=== PATIENT | male | born 1980 | race Caucasian/White ===

== ENCOUNTER 2022-01-02 18:46 | Emergency (ER) | payer SELFPAY ==
[2022-01-02 19:21] LABS: BASOPHILS % (AUTO) 0.5 %; EOSINOPHILS # (AUTO) 0.1 10^3/uL (0.0-0.7); EOSINOPHILS % (AUTO) 1.6 %; HCT - HEMATOCRIT 43.8 % (42.0-52.0); HGB - HEMOGLOBIN 14.9 g/dL (14.0-18.0); LYMPHOCYTES # (AUTO) 1.5 10^3/uL (1.5-3.5); MEAN CORPUSCULAR HEMOGLOBIN 31.1 pg (27.0-31.0); MEAN CORPUSCULAR VOLUME 91.4 fL (80.0-94.0); MEAN PLATELET VOLUME 9.4 fL (7.4-11.4); MONOCYTES # (AUTO) 0.6 10^3/uL (0.0-1.0); NEUTROPHILS # (AUTO) 6.1 10^3/uL (1.5-6.6); NEUTROPHILS % (AUTO) 72.8 %; PLT - PLATELET COUNT 279 10^3/uL (130-450); RED BLOOD COUNT 4.79 10^6/uL (4.70-6.10); RED CELL DISTRIBUTION WIDTH 12.9 % (12.0-15.0); WHITE BLOOD COUNT 8.3 x10^3/uL (4.8-10.8)
[2022-01-02 19:31] LABS: ALBUMIN 4.1 g/dL (3.2-5.5); ALBUMIN/GLOBULIN RATIO 1.2 (1.0-2.2); BILIRUBIN,TOTAL 0.6 mg/dL (0.2-1.0); CALCIUM 8.8 mg/dL (8.5-10.3); CREATININE 0.8 mg/dL (0.6-1.2); POTASSIUM 3.8 mmol/L (3.5-5.0); TOTAL PROTEIN 7.4 g/dL (6.7-8.2)
--- NOTE | 2022-01-02 19:56 | ED Physician Documentation ---
PD HPI ABD PAIN - Stated complaint Stated Complaint: ABD PX - Chief complaint Chief Complaint: Abd Pain - History obtained from History obtained from: Patient - History of Present Illness Timing - onset: Today PD PAST MEDICAL HISTORY - Allergies Allergies/Adverse Reactions: Allergies Allergy/AdvReac Type Severity Reaction Status Date / Time No Known Drug Allergies Allergy Verified 01/02/22 18:55 Results - Vitals Vitals: Vital Signs - 24 hr 01/02/22 18:51 Temperature 36.1 C L Heart Rate 90 Respiratory 18 Rate Blood Pressure 142/94 H O2 Saturation 98 - Labs Labs: Laboratory Tests 01/02/22 01/02/22 19:15 19:17 WBC 8.3 RBC 4.79 Hgb 14.9 Hct 43.8 MCV 91.4 MCH 31.1 H MCHC 34.0 RDW 12.9 Plt Count 279 MPV 9.4 Neut # (Auto) 6.1 Lymph # (Auto) 1.5 [place] # (Auto) 0.6 Eos # (Auto) 0.1 Baso # (Auto) 0.0 Absolute Nucleated RBC 0.00 Nucleated RBC % 0.0 Sodium 132 L Potassium 3.8 Chloride 98 L Carbon Dioxide 24 Anion Gap 10.0 BUN 11 Creatinine 0.8 Estimated GFR (MDRD) 106 Glucose 177 H Calcium 8.8 Total Bilirubin 0.6 AST 23 ALT 30 Alkaline Phosphatase 49 Total Protein 7.4 Albumin 4.1 Globulin 3.3 Albumin/Globulin Ratio 1.2 Lipase 30
--- NOTE | 2022-01-02 20:51 | ED Physician Documentation ---
History of Present Illness - Stated complaint Stated Complaint: ABD PX - Chief complaint Chief Complaint: Abd Pain - History obtained from History obtained from: Patient - Additonal information Additional information: The patient comes to the emergency department chief complaint of pain in umbilical area that is been going on for a few days but especially bad tonight. The patient states he has a longstanding history of umbilical hernia, and that normally, he can get it to go back in, but he states it has just been too painful to try to Reduce the herniated contents. He states he tried stretching his arms up this evening, Which is what he usually does to try to relax his abdomen and reduce the hernia. However, he states it made it hurt more and it did not seem like it helped at all. He states he has been having bowel movements and passing gas without difficulty. No nausea or vomiting. No other complaints at this time. Review of Systems Ten Systems: 10 systems reviewed and negative Constitutional: reports: Reviewed and negative Eyes: reports: Reviewed and negative Ears: reports: Reviewed and negative Nose: reports: Reviewed and negative Throat: reports: Reviewed and negative Cardiac: reports: Reviewed and negative Respiratory: reports: Reviewed and negative GI: reports: Abdominal Pain : reports: Reviewed and negative Skin: reports: Reviewed and negative Musculoskeletal: reports: Reviewed and negative Neurologic: reports: Reviewed and negative Psychiatric: reports: Reviewed and negative Endocrine: reports: Reviewed and negative Immunocompromised: reports: Reviewed and negative PD PAST MEDICAL HISTORY - Allergies Allergies/Adverse Reactions: Allergies Allergy/AdvReac Type Severity Reaction Status Date / Time No Known Drug Allergies Allergy Verified 01/02/22 18:55 PD ED PE NORMAL - Vitals Vital signs reviewed: Yes - General General: Alert and oriented X 3, No acute distress, Well developed/nourished - HEENT HEENT: Atraumatic, PERRL, EOMI, Moist mucous membranes - Neck Neck: Supple, no meningeal sign - Cardiac Cardiac: RRR, No murmur - Respiratory Respiratory: Clear bilaterally - Abdomen Abdomen: Soft, Non distended, Other (Obese abdomen. Fullness noted over superior aspect of umbilicus, but underlying tissue is soft. Mild distention of superior edge of herniated contents is palpable, and soft. Difficult to discern any reduction, secondary to obesity and softness of herniated contents) - Derm Derm: Normal color, Warm and dry, No rash - Extremities Extremities: No deformity, No edema, No calf tenderness / cord - Neuro Neuro: Alert and oriented X 3 - Psych Psych: Normal mood, Normal affect Results - Vitals Vitals: Vital Signs - 24 hr 01/02/22 01/02/22 01/02/22 18:51 20:30 21:00 Temperature 36.1 C L Heart Rate 90 80 78 Respiratory 18 Rate Blood Pressure 142/94 H 127/88 H 122/83 H O2 Saturation 98 100 100 01/02/22 01/02/22 01/03/22 23:15 23:55 00:40 Temperature 37.2 C Heart Rate 86 89 71 Respiratory 16 22 18 Rate Blood Pressure 126/88 H 183/95 H 128/71 O2 Saturation 100 94 96 Oxygen O2 Source Room air - Labs Labs: Laboratory Tests 01/02/22 01/02/22 19:15 19:17 WBC 8.3 RBC 4.79 Hgb 14.9 Hct 43.8 MCV 91.4 MCH 31.1 H MCHC 34.0 RDW 12.9 Plt Count 279 MPV 9.4 Neut # (Auto) 6.1 Lymph # (Auto) 1.5 [place] # (Auto) 0.6 Eos # (Auto) 0.1 Baso # (Auto) 0.0 Absolute Nucleated RBC 0.00 Nucleated RBC % 0.0 Sodium 132 L Potassium 3.8 Chloride 98 L Carbon Dioxide 24 Anion Gap 10.0 BUN 11 Creatinine 0.8 Estimated GFR (MDRD) 106 Glucose 177 H Calcium 8.8 Total Bilirubin 0.6 AST 23 ALT 30 Alkaline Phosphatase 49 Total Protein 7.4 Albumin 4.1 Globulin 3.3 Albumin/Globulin Ratio 1.2 Lipase 30 - Rads (name of study) CT abdomen pelvis Radiology: Final report received, EMP read indepedently, See rad report (Umbilical hernia containing fat and small intestine. Small area of small bowel wall thickening, consistent with small bowel obstruction upstream from the hernia.) PD MEDICAL DECISION MAKING - ED course Complexity details: reviewed results, re-evaluated patient, considered differential, d/w patient ED course: The patient's exam was somewhat difficult because he had moderate Pawel obese abdomen and the herniated contents were indistinct. The hernia area felt very soft, but patient also had a lot of tenderness with any attempt to reduce the hernia, so I could not get a clear picture whether the hernia was actually reducing or not. Because of this, I felt the patient should have a CT scan of the abdomen and pelvis. His laboratory studies were unremarkable. He was sent for CT, And CT showed a fat and small intestine containing hernia just superior to the umbilicus. Bowel was not necrotic. There appeared to be some small matthew l obstruction just upstream from the hernia. I discussed the findings with the patient, and he agreed to have a little bit of analgesia and We will see if we can get the hernia to reduce after that. The patient was given Dilaudid and about 20 minutes later I went in to check on him. He was completely pain-free. Additionally, he had been sleeping in the bed with his arms up behind his head, and his hernia had reduced spontaneously. I did probe deeply and found the hernia opening. There is no longer any soft tissue herniating through from abdominal cavity, and I felt the patient was stable for discharge. We have discussed the usual indications for return. Departure - Departure Disposition: 01 Home, Self Care Clinical Impression: Incarcerated hernia, Small bowel obstruction Umbilical hernia Qualifiers: Obstruction and gangrene presence: without obstruction or gangrene Qualified Code(s): K42.9 - Umbilical hernia without obstruction or gangrene Condition: Stable Instructions: Hernia How Develops Follow-Up: Clinton Melo MD [Provider Admit Priv/Credential] - Comments: Your labs look good tonight. Your CT scan showed a hernia with some intestine sticking out through it, right above your bellybutton. It also showed the beginning of a small bowel obstruction, most likely because the intestine that w as stuck in the hernia was not letting any of the intestinal contents get through. However, with some pain medication and stretching out, your hernia has actually reduced by itself. As such, and this should allow the intestinal obstruction clear, now that the intestine is out of the hernia, and everything should be able to move forward. If you develop severe pain again or any nausea or vomiting in association with it, you should seek medical reevaluation. Otherwise, please avoid heavy lifting and be sure to get a high-fiber diet. If you wish to have your hernia repaired, you may follow-up with the surgeons to discuss this. Discharge Date/Time: 01/03/22 00:41
[2022-01-02] MEDS ORDERED: IOVERSOL 320 100 ML VIAL IVP ONE ×2 (21:07→21:39)
--- NOTE | 2022-01-02 22:45 | CT Report ---
PROCEDURE: Abdomen/Pelvis W INDICATIONS: lizet-umbilical pain, hernia CONTRAST: IV CONTRAST: Optiray 320. TECHNIQUE: After the administration of intravenous contrast, 5 mm thick sections acquired from the diaphragms to the symphysis. 5 mm thick coronal and sagittal reformats were acquired. For radiation dose reducti on, the following was used: automated exposure control, adjustment of mA and/or kV according to dudley ent size. COMPARISON: None. FINDINGS: Image quality: Excellent. ABDOMEN: Lung bases: Bibasilar atelectasis. There is a 3 mm nodule in the right middle lobe (series 4 image 1) . Heart size is normal. Small hiatal hernia. Solid organs: Liver is normal in size. There is a 2.3 cm subcapsular mass in the right hepatic lobe. In addition, there is a vague 1 cm low dense nodule in the right hepatic lobe (series 3 image 25). Spleen is normal in size and enhancement. Gallbladder is normal. Biliary system is non dilated. Barry creas enhances normally. No adrenal nodules. Kidneys demonstrate normal size and enhancement, witho ut hydronephrosis. Peritoneum and bowel: Proximal small intestine is mildly distended measuring up to 3 cm in diameter. Distal small bowel loops are decompressed. The transitional point is at the periumbilical ventral her keesha. The CT findings are consistent with small bowel obstruction. There is appearance of mild diffuse colonic wall, most likely due to lack of distention. No free flui d or air. Nodes and vessels: No retroperitoneal or mesenteric adenopathy by size criteria. Aorta and inferior vena cava are normal in size. Miscellaneous: There is a moderate-sized periumbilical toe hernia containing a loop of small intestin e. The hernia neck measures 2.7 cm transverse and 1.9 cm cephalocaudal. PELVIS: Genitourinary: Bladder wall thickness is normal. Miscellaneous: No inguinal hernias or adenopathy. Bones: No suspicious bony lesions. No vertebral body compression fractures. There is grade 1 anter olisthesis of L4 on L5 secondary to bilateral L4 pars defects. IMPRESSION: 1. There is a moderate-sized periumbilical ventral hernia containing a short segment of small intesti ne. There is small bowel obstruction caused by the hernia. 2. Appearance of mild colonic wall thickening most likely due to lack of distention. Mild colitis is felt less likely. 3. There are 2 indeterminate hepatic masses. A nonemergent ultrasound is recommended as initial follo w-up evaluation. 4. A 3 mm nodule in the right middle lobe. Recommend nonemergent follow-up chest CT in 3 months. 5. Bilateral pars defects at L4. There is grade 1 anterolisthesis of L4 on L5. Reviewed by: Howard Kendall MD on 01/02/2022 10:43 PM PST Approved by: Howard Kendall MD on 01/02/2022 10:43 PM PST Station ID: [id number]
[2022-01-02] MEDS ORDERED: HYDROmorphone 1 MG/ML CARPUJECT IVP STA (23:09)
[2022-01-03 00:41] VITALS: BP 128/71
== END 2022-01-03 00:41 | disposition home or self-care (01) ==
LOC: ED 18:46
DX: K42.9 Umbilical hernia without obstruction or gangrene (principal)
CPT/HCPCS: 36415; 74177; 80053; 83690; 85025; 96372; 99282; 99284; J1170; Q9967; 81001; 81003; 87086

== ENCOUNTER 2023-02-13 17:42 | Emergency (ER) | payer OTHER ==
[2023-02-13] MEDS ORDERED: MORPHINE 2 MG/ML CARPUJECT IVP STA ×2 (19:11→19:48)
[2023-02-13] MEDS ORDERED: ONDANSETRON 4 MG/2 ML VIAL IVP STA (19:11)
[2023-02-13] MEDS ORDERED: SODIUM CHLORIDE 0.9% 1,000 ML IV STA (19:27)
--- NOTE | 2023-02-13 19:43 | ED Physician Documentation ---
PD HPI ABD PAIN - Stated complaint Stated Complaint: ABD PX/BULGE - Chief complaint Chief Complaint: Abd Pain - History obtained from History obtained from: Patient - Additional information Additional information: Patient is a 42-year-old male with a known umbilical hernia presenting for evaluation of worsening pain to the hernia site for the past 2 days. He denies nausea or vomiting, fevers. His last bowel movement was this morning. He denies diarrhea. He states that his stools may have been more hard recently. He denies doing any New activities yesterday that could have worsened his pain. 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 Review of Systems Constitutional: denies: Fever Cardiac: denies: Chest pain / pressure Respiratory: denies: Dyspnea GI: reports: Abdominal Pain. denies: Nausea, Vomiting, Diarrhea, Bloody / black stool : denies: Dysuria Musculoskeletal: denies: Back pain Neurologic: denies: Headache PD PAST MEDICAL HISTORY - Past Medical History Past Medical History: Yes GI: Other Other Past Medical History: umbilical hernia - Past Surgical History Past Surgical History: No - Present Medications Home Medications: Ambulatory Orders Medication Instructions Recorded Confirmed No Known Home Medications 02/13/23 02/13/23 - Allergies Allergies/Adverse Reactions: Allergies Allergy/AdvReac Type Severity Reaction Status Date / Time No Known Drug Allergies Allergy Verified 02/13/23 17:50 - Social History Does the pt smoke?: Yes Smoking Status: Current every day smoker Does the pt drink ETOH?: Yes Does the pt have substance abuse?: Yes Substance Use and Type: Marijuana, Meth - POLST Patient has POLST: No PD ED PE NORMAL - General General: Alert and oriented X 3, No acute distress, Well developed/nourished - HEENT HEENT: Atraumatic - Neck Neck: Supple, no meningeal sign - Cardiac Cardiac: RRR - Respiratory Respiratory: No respiratory distress, Clear bilaterally - Abdomen Abdomen: Normal bowel sounds, Soft, Non distended, Other (Umbilical hernia with overlying erythema/warmth/tenderness) - Derm Derm: Warm and dry - Neuro Neuro: Normal speech Results - Vitals Vitals: Vital Signs - 24 hr 02/13/23 02/13/23 02/13/23 17:50 20:12 21:15 Temperature 36.5 C 36.8 C Heart Rate 84 78 79 Respiratory 16 13 17 Rate Blood Pressure 150/100 H 144/104 H 140/100 H O2 Saturation 99 100 100 02/13/23 02/13/23 02/13/23 21:40 22:27 22:42 Temperature Heart Rate 85 88 91 Respiratory 14 16 16 Rate Blood Pressure 150/105 H 131/87 H 134/92 H O2 Saturation 97 94 95 02/13/23 23:56 Temperature 36.6 C Heart Rate 98 Respiratory 18 Rate Blood Pressure 128/87 H O2 Saturation 97 Oxygen O2 Source Room air - Labs Labs: Laboratory Tests 02/13/23 02/13/23 02/13/23 19:27 19:27 21:04 WBC 9.4 RBC 5.03 Hgb 15.2 Hct 46.7 MCV 92.8 MCH 30.2 MCHC 32.5 RDW 11.8 L Plt Count 403 MPV 9.0 Neut # (Auto) 6.5 Lymph # (Auto) 2.2 [place] # (Auto) 0.6 Eos # (Auto) 0.1 Baso # (Auto) 0.1 Absolute Nucleated RBC 0.00 Nucleated RBC % 0.0 Sodium 138 Potassium 3.9 Chloride 103 Carbon Dioxide 27 Anion Gap 8.0 BUN 12 Creatinine 0.8 Estimated GFR (MDRD) 105 Glucose 108 H Lactic Acid 0.9 Calcium 9.3 Total Bilirubin 0.2 AST 25 ALT 31 Alkaline Phosphatase 48 Total Protein 7.9 Albumin 4.2 Globulin 3.7 Albumin/Globulin Ratio 1.1 Lipase 31 PD Medical Decision Making - ED course Complexity details: reviewed results, re-evaluated patient, d/w patient ED course: 1947 - Per RN, believes the IV infiltrated and that pt didnt receive meds. Reordered morphine. Attempted reduction after patient received morphine but patient continued to have significant tenderness and was unable to tolerate attempts at reduction. 2034 - D/W Dr. Smith - Discussed concerns given overlying erythema and warmth along with tenderness. She recommends CT scan. Recommends giving a small dose of Versed to see if this will help him relax so we can reduce it as well as checking a lactic. 2117 - Able to reduce hernia, RN is at the bedside,Patient still reports having pain but is significantly better. Patient presenting for evaluation of umbilical hernia. Vital signs are stable. CBC and chemistries are unremarkable and lactic is normal. Patient did receive IV morphine along with IV Versed and I was able to successfully reduce his hernia. CT scan was also obtained which does not show signs of incarceration or strangulation.CT scan does demonstrate gastroenteritis vs ileus. He is tolerating p.o. He has not vomiting.He does not have symptoms to suggest a bowel obstruction. Patient was counseled on need for close follow-up with general surgery to discuss repair of his hernia. He was also advised on strict return precautions. Departure - Departure Disposition: 01 Home, Self Care Clinical Impression: Umbilical hernia Condition: Stable Instructions: ED Hernia Inguinal Follow-Up: Cait Smith MD [Provider Admit Priv/Credential] - Comments: You need close follow-up regarding your hernia with a general surgeon as it may be time to consider having it repaired.I have listed the name of 1 locally that you can call to try and arrange for close follow-up. If you again develop any worsening symptoms such as increased pain or having trouble pushing it back down then please return to the emergency department. Your CT scan does show a small amount of inflammation through the intestinal track which is likely related to a gastroenteritis. Please make sure you are staying hydrated. If you develop any worsening symptoms please consider return to the emergency department. Discharge Date/Time: 02/14/23 00:10
[2023-02-13 19:46] LABS: BASOPHILS # (AUTO) 0.1 10^3/uL (0.0-0.1); BASOPHILS % (AUTO) 0.5 %; EOSINOPHILS # (AUTO) 0.1 10^3/uL (0.0-0.7); EOSINOPHILS % (AUTO) 1.2 %; HCT - HEMATOCRIT 46.7 % (42.0-52.0); HGB - HEMOGLOBIN 15.2 g/dL (14.0-18.0); LYMPHOCYTES # (AUTO) 2.2 10^3/uL (1.5-3.5); LYMPHOCYTES % (AUTO) 23.1 %; MEAN CORPUSCULAR HEMOGLOBIN 30.2 pg (27.0-31.0); MEAN CORPUSCULAR HGB CONC 32.5 g/dL (32.0-36.0); MEAN CORPUSCULAR VOLUME 92.8 fL (80.0-94.0); MONOCYTES # (AUTO) 0.6 10^3/uL (0.0-1.0); MONOCYTES % (AUTO) 5.8 %; NEUTROPHILS # (AUTO) 6.5 10^3/uL (1.5-6.6); NEUTROPHILS % (AUTO) 69.1 %; PLT - PLATELET COUNT 403 10^3/uL (130-450); RED BLOOD COUNT 5.03 10^6/uL (4.70-6.10); RED CELL DISTRIBUTION WIDTH 11.8 % (12.0-15.0); WHITE BLOOD COUNT 9.4 x10^3/uL (4.8-10.8)
[2023-02-13 19:58] LABS: ALBUMIN 4.2 g/dL (3.2-5.5); ALBUMIN/GLOBULIN RATIO 1.1 (1.0-2.2); BILIRUBIN,TOTAL 0.2 mg/dL (0.2-1.0); CALCIUM 9.3 mg/dL (8.5-10.3); CREATININE 0.8 mg/dL (0.6-1.2); POTASSIUM 3.9 mmol/L (3.5-5.0); TOTAL PROTEIN 7.9 g/dL (6.7-8.2)
[2023-02-13] MEDS ORDERED: MIDAZOLAM 2 MG/2 ML VIAL IVP STA (20:34)
[2023-02-13] MEDS ORDERED: iohexoL-300 100 ML VIAL ONE (21:00)
[2023-02-13] MEDS ORDERED: iohexoL-300 100 ML VIAL IVP ONE (23:22)
--- NOTE | 2023-02-13 23:42 | CT Report ---
PROCEDURE: ABDOMEN/PELVIS W INDICATIONS: umbilical hernia CONTRAST: : Omni 300 100ml TECHNIQUE: After the administration of intravenous contrast, 5 mm thick sections acquired from the diaphragms to the symphysis. 5 mm thick coronal and sagittal reformats were acquired. For radiation dose reducti on, the following was used: automated exposure control, adjustment of mA and/or kV according to dudley ent size. COMPARISON: CT abdomen pelvis 01/02/2022 FINDINGS: Image quality: Excellent. Lung bases:There are small clustered groundglass nodules within the left lower lobe and left lingula . Heart: Heart is normal in size. ABDOMEN: Liver:A small ill-defined hypoattenuating lesion in the posterior right hepatic lobe measuring up to 2.8 cm appears similar in size compared to the prior study. Gallbladder: Within normal limits without calcified gallstones. Biliary ducts: No biliary ductal dilatation. Pancreas: Unremarkable. Spleen: Normal in size. Adrenal Glands: No adrenal nodules. Kidneys and Ureters: No hydronephrosis. Stomach and Bowel: Stomach, small bowel loops, and colon are normal in caliber and wall thickness. N o is mild fluid distention throughout the small and large bowel with scattered air-fluid levels but w ithout a transition point. The findings likely represent a gastroenteritis or ileus. The appendix is normal in appearance. Peritoneum: No abnormal intraperitoneal fluid. No free air. Ventral Wall: There is a small fat-containing periumbilical hernia. Internal fat stranding and fluid within the hernia may reflect fat necrosis. No herniated bowel loops. Abdominal Nodes: No retroperitoneal or mesenteric adenopathy by size criteria. Vessels: Aorta and inferior vena cava are normal in size. PELVIS: Pelvic Organs: Unremarkable. Bladder: Unremarkable. Pelvic Nodes: No enlarged lymph nodes. Miscellaneous: No inguinal hernias. Bones: Visualized osseous structures demonstrate no suspicious lesions. IMPRESSION: 1. Small periumbilical fat-containing hernia without evidence of bowel herniation. Fat stranding and fluid within the hernia may reflect fat necrosis. 2. Mild fluid distention throughout the small and large bowel with scattered air-fluid levels suggest constantino of a gastritis and enteritis or ileus. No evidence of bowel obstruction. Reviewed by: Pedro Garcia MD on 02/13/2023 11:53 PM PDT Approved by: Pedro Garcia MD on 02/13/2023 11:53 PM PDT Station ID: [id number]
[2023-02-13 23:58] VITALS: BP 128/87
== END 2023-02-14 00:10 | disposition home or self-care (01) ==
LOC: ED 17:42
DX: K42.9 Umbilical hernia without obstruction or gangrene (principal); F17.200 Nicotine dependence, unspecified, uncomplicated
CPT/HCPCS: 36415; 74177; 80053; 83605; 83690; 85025; 96374; 96375; 96376; 99284; Q9967